=== PATIENT | female | born 2000 | race African-American/Black ===

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

== ENCOUNTER 2022-12-31 23:22 | Emergency (ER) | payer MEDICAID ==
[~2022-12-31] VITALS: Ht 162.6 cm; Wt 87.7 kg
[~2022-12-31 23:22] MED LIST: IBUP-2029 MT
[2023-01-01] VITALS: BP 131/79; PULSE 74; RESP 16; TEMP 98.6; O2SAT 99
[2023-01-01 00:49] LABS: BASOPHILS % 0.3 % (0.0-2.0); EOSINOPHILS % 1.7 % (0.0-5.0); HEMATOCRIT. 40.9 % (36.0-48.0); HEMOGLOBIN. 13.4 g/dL (12.0-16.0); LYMPHOCYTES % 31.8 % (20.0-50.0); MEAN CORPUSCULAR HEMOGLOBIN 30.8 pg (28.0-32.0); MEAN CORPUSCULAR VOLUME 94.1 fL (81.0-99.0); MEAN PLATELET VOLUME 9.2 fl (7.4-10.4); MONOCYTES % 10.9 % (2.0-8.0); NEUTROPHILS % 55.3 % (40.0-76.0); PLATELET 279 x1000/uL (130-400); RED BLOOD CELL COUNT 4.35 mill/uL (4.2-5.4)
[2023-01-01 00:59] LABS: CHLORIDE 105 mEq/L (98-107)
[2023-01-01 01:03] LABS: HCG SCREEN NEGATIVE
[2023-01-01 01:28] LABS: PROTHROMBIN TIME 10.8 sec (9.6-11.0)
[2023-01-01] MEDS ORDERED: IBUP-2028 MT (01:40)
== END 2023-01-01 01:57 | disposition home or self-care (01) ==
LOC: ER 23:22
DX: R07.89 Other chest pain (principal)
CPT/HCPCS: 36415; 71046; 80053; 83880; 84484; 84703; 85025; 93005; 99285

== ENCOUNTER 2023-11-25 11:12 | Emergency (ER) | payer MEDICAID ==
[~2023-11-25] VITALS: Ht 162.6 cm; Wt 82.0 kg
[~2023-11-25 11:12] MED LIST changes: +IBUP-2028 MT
[2023-11-25 11:20] VITALS: BP 115/76; PULSE 95; RESP 16; TEMP 98.2; O2SAT 100
[2023-11-25] MEDS: LIDOCAINE HCL/PF 1% 10 MG/ML 5ML VIAL INFIL ONE (13:54)
[2023-11-25] MEDS: BACITRACIN ZINC OINT UDPKT TOP ONE (13:54)
[2023-11-25] MEDS ORDERED: ACET-2708 MT (14:03)
[2023-11-25] MEDS ORDERED: SULF1TAB48 MT (14:06)
== END 2023-11-25 14:37 | disposition home or self-care (01) ==
LOC: ER 11:12
DX: L02.213 Cutaneous abscess of chest wall (principal)
CPT/HCPCS: 99283; 10060; J3490

== ENCOUNTER 2024-03-18 02:40 | Emergency (ER) | payer MEDICAID ==
[~2024-03-18] VITALS: Ht 162.6 cm; Wt 79.0 kg
[~2024-03-18 02:40] MED LIST changes: +ACET-2708 MT; +SULF1TAB48 MT
[2024-03-18 03:11] VITALS: TEMP 98; O2SAT 97
[2024-03-18] MEDS ORDERED: ACET-2708 MT (03:27)
[2024-03-18] MEDS ORDERED: CEPH500C2 MT (03:27)
[2024-03-18] MEDS: ACETAMINOPHEN 325MG TABLET PO ONE (04:06)
[2024-03-18] MEDS: CEPHALEXIN 250MG CAPSULE PO ONE (04:06)
[2024-03-18 04:12] VITALS: BP 147/98; PULSE 72; RESP 18; O2SAT 100
== END 2024-03-18 04:12 | disposition home or self-care (01) ==
LOC: ER 02:40
DX: L03.313 Cellulitis of chest wall (principal); I10 Essential (primary) hypertension; Z79.899 Other long term (current) drug therapy
CPT/HCPCS: 81025; 93005; 99283

== ENCOUNTER 2024-03-19 21:48 | Emergency (ER) | payer MEDICAID ==
[~2024-03-19] VITALS: Ht 162.6 cm; Wt 80.7 kg
[~2024-03-19 21:48] MED LIST changes: +CEPH500C2 MT
[2024-03-19 22:09] VITALS: BP 114/70; TEMP 98.4; O2SAT 100
[2024-03-19 22:11] VITALS: PULSE 100; RESP 16; O2SAT 100
[2024-03-19] MEDS ORDERED: LIDOCAINE HCL/EPINEPHRINE 1%-EPI 1:100,000 10ML VIAL INFIL ONE (22:30)
[2024-03-19] MEDS ORDERED: BACITRACIN ZINC OINT UDPKT TOP ONE (22:30)
[2024-03-20] MEDS: BACITRACIN ZINC OINT UDPKT TOP NR (00:42)
[2024-03-20] MEDS: LIDOCAINE HCL/EPINEPHRINE 1%-EPI 1:100,000 20ML VIAL INFIL NR (00:43)
== END 2024-03-20 00:48 | disposition home or self-care (01) ==
LOC: ER 21:48
DX: N61.1 Abscess of the breast and nipple (principal); Z79.899 Other long term (current) drug therapy
CPT/HCPCS: 99283; 10060; 93005; J3490